=== PATIENT | female | born 1990 | race Caucasian/White ===

== ENCOUNTER 2019-08-02 17:27 | Observation (INO) | payer BC ==
[~2019-08-02] VITALS: Ht 165.1 cm; Wt 135.0 kg
[2019-08-02] MEDS ORDERED: LEXAPRO 10MG10 MG PO (18:00)
[2019-08-02 18:12] LABS: BASO # 0.1 (0.0-0.2); BASO % 0.5 % (0.0-2.0); EOS # 0.2 (0.0-0.7); EOS % 1.1 % (0-4.0); GRAN # 10.3 (1.4-6.5); GRAN % 78.2 % (42.2-75.2); HEMOGLOBIN 11.4 g/dl (12.5-16.0); LYMPH # 1.4 (1.2-3.4); LYMPH % 10.8 % (20.0-51.0); MEAN CELL VOLUME 92 fl (80.0-100.0); MEAN CORPUSCULAR HEMOGLOBIN 31 pg (27.0-31.0); MEAN CORPUSCULAR HGB CONC 34 g/dl (33.0-37.0); MEAN PLATELET VOLUME 10.7 fl (7.4-10.4); MONO # 1.2 (0.1-0.6); MONO % 9.1 % (1.7-9.3); PLATELET COUNT 184 K/mm3 (130-400); RED BLOOD COUNT 3.69 M/mm3 (4.10-5.30); REDCELL DISTRIBUTION WIDTH-CV 11.6 % (11.5-14.5)
[2019-08-02 18:15] LABS: HEMATOCRIT 33.8 % (37.0-47.0)
[2019-08-02 18:34] LABS: ALBUMIN 4.2 gm/dL (3.5-5.0); BILIRUBIN,TOTAL 0.7 mg/dL (0.0-1.0); C-REACTIVE PROTEIN 1.1 mg/dL (0.0-0.9); CALCIUM 8.9 mg/dL (8.4-10.2); CREATININE, serum 0.56 (0.52-1.25); TOTAL PROTEIN 6.9 gm/dL (6.4-8.2)
[2019-08-02 18:48] LABS: PROLACTIN 30.9 ng/mL (3.0-18.6)
[2019-08-02 18:57] LABS: COLLECTION METHOD CLEAN CATCH
[2019-08-02 19:05] LABS: MUCOUS Present /lpf; PH 5 (5-8); URINE APPEARANCE Hazy; URINE BACTERIA None Seen /hpf; URINE BILIRUBIN Negative (NEGATIVE); URINE BLOOD Negative (NEGATIVE); URINE COLOR Yellow; URINE GLUCOSE Negative (NEGATIVE); URINE KETONE 2+ (NEGATIVE); URINE LEUKOCYTE ESTERASE Negative (NEGATIVE); URINE NITRATE Negative (NEGATIVE); URINE PROTEIN(semi-quant) Negative (NEGATIVE); URINE RBC 0-2 /hpf; URINE UROBILINOGEN Negative (NEGATIVE)
--- NOTE | 2019-08-02 19:50 | NUR ---
Pt wheeled to room 222 from ER. Pt ambulatory to bed indepently. VSS Assessment completed. Pt denies pain at this time, states she is just having some "abdominal discomfort." Denies lightheadness or dizziness. Pt reports "passing out before coming to the ER." Plan of care explained to pt. IV restarted per pts request. Call light within reach.
[2019-08-02 20:00] VITALS: BP 116/67; PULSE 63; TEMP 98.5
[2019-08-02 21:24] VITALS: BP 114/67; PULSE 63; TEMP 98.5
[2019-08-03 00:05] VITALS: BP 97/56; PULSE 51; TEMP 98.8
[2019-08-03 04:45] VITALS: BP 92/56; PULSE 56; TEMP 98.6
[2019-08-03 07:17] LABS: BASO % 0.5 % (0.0-2.0); EOS # 0.2 (0.0-0.7); GRAN # 3.5 (1.4-6.5); GRAN % 52.5 % (42.2-75.2); LYMPH # 2.1 (1.2-3.4); LYMPH % 31.8 % (20.0-51.0); MEAN CELL VOLUME 92 fl (80.0-100.0); MEAN CORPUSCULAR HGB CONC 34 g/dl (33.0-37.0); MONO # 0.8 (0.1-0.6); PLATELET COUNT 160 K/mm3 (130-400); RED BLOOD COUNT 3.09 M/mm3 (4.10-5.30); REDCELL DISTRIBUTION WIDTH-CV 11.9 % (11.5-14.5)
[2019-08-03 07:20] LABS: HEMATOCRIT 28.5 % (37.0-47.0); HEMOGLOBIN 9.7 g/dl (12.5-16.0); MEAN CORPUSCULAR HEMOGLOBIN 31 pg (27.0-31.0)
[2019-08-03 08:08] VITALS: BP 107/55; PULSE 61; TEMP 98.2
--- NOTE | 2019-08-03 08:15 | NUR ---
Assessment complete. Pt denies having any dizziness or lightheadedness. States her pain is controlled with the Motrin.
[2019-08-03] MEDS ORDERED: MOTRIN 800800 MG/TAB PO (08:35)
[2019-08-03] MEDS ORDERED: PERCOCET 325 MG1 TA2 PO (08:35)
--- NOTE | 2019-08-03 09:00 | NUR ---
Dr Bernardo here and orders received to DC home. 0925:IV dc'd and discharge instructions given. Pt verbalizes understanding and will return if pain worsens or call physician if needed. Scripts given. 0935:Pt taken to personal vehicle.
== END 2019-08-03 09:35 | disposition home or self-care (01) ==
LOC: COL.ER 17:27 → OB 19:22
PROVIDERS: Emergency Medicine; ADMIT Obstetrics & Gynecology
DX: N83.201 Unspecified ovarian cyst, right side (principal); K66.1 Hemoperitoneum
CPT/HCPCS: G0378; J1885; J7030; Q9967